=== PATIENT | female | born 1945 | race Caucasian/White ===

== ENCOUNTER 2018-01-09 18:19 | Emergency (ER) | payer MEDICARE, BC ==
[~2018-01-09] VITALS: Ht 160 cm; Wt 55.8 kg
[2018-01-09] MEDS ORDERED: TYLENOL EXTRA500 MG PO (19:21)
[2018-01-09] MEDS ORDERED: LIORESAL 10 MG10 MG PO (19:22)
[2018-01-09] MEDS ORDERED: ASPIRIN325 PO (19:22)
[2018-01-09] MEDS ORDERED: NORVASC2.5 MG PO (19:22)
[2018-01-09] MEDS ORDERED: CARBAMAZEPINE200 M5 PO (19:23)
[2018-01-09] MEDS ORDERED: CELEBREX 200 M200 M1 PO (19:24)
[2018-01-09] MEDS ORDERED: CLONAZEPAM 0.50.5 M1 PO (19:24)
[2018-01-09] MEDS ORDERED: ENOXAPARIN30 MG/0.1 SUBQ (19:25)
[2018-01-09] MEDS ORDERED: FLEXERIL PO (19:25)
[2018-01-09] MEDS ORDERED: CLONIDINE HCL0.2 M2 PO (19:25)
[2018-01-09] MEDS ORDERED: LASIX 20 MG TAB20 MG PO (19:26)
[2018-01-09] MEDS ORDERED: IBUPROFEN 400400 M2 PO (19:26)
[2018-01-09] MEDS ORDERED: BYSTOLIC 5 MG5 M1 PO (19:26)
[2018-01-09] MEDS ORDERED: OXYCONTIN10 M1 PO (19:27)
[2018-01-09] MEDS ORDERED: BIOTENE ORALB44.3 ML PO (19:28)
[2018-01-09] MEDS ORDERED: CARAFATE 1 GM TA1 GM PO (19:28)
[2018-01-09] MEDS ORDERED: SENNA S TABLET1 EACH PO (19:38)
[2018-01-09 20:01] VITALS: BP 164/71
== END 2018-01-09 20:02 | disposition home or self-care (01) ==
LOC: M.ERS 18:19
DX: K59.00 Constipation, unspecified (principal); I10 Essential (primary) hypertension; Z88.6 Allergy status to analgesic agent